=== PATIENT | male | born 1965 | race Caucasian/White ===

== ENCOUNTER 2021-03-24 22:37 | Inpatient (IN) | payer OTHER ==
[2021-03-25] MEDS ORDERED: VANCOMYCIN 1 GM in D5W (PRE-DOCKED) 1,000 MG/250 ML IVPB ONE (00:04)
[2021-03-25] MEDS ORDERED: AMPICILLIN NA/SULBACTAM NA 1.5 GM in SODIUM CHLORIDE 100 ML IVPB ONE (00:19)
[2021-03-25] MEDS ORDERED: VANCOMYCIN 1 GRAM (PRE-DOCKED) 1,000 MG/250 ML BAG IVPB ONE (00:29)
[2021-03-25 01:01] LABS: BASO % 1.6 % (0-2.0); EOS % 11.6 % (0-4.5); HEMATOCRIT 43.5 % (35.4-49); HEMOGLOBIN 14.7 GM/dL (11.7-16.9); LYMPH % 30.9 % (8-40); MCH 29.1 pg (25.7-33.7); MCHC 33.8 g/dl (32.0-35.9); MEAN CELL VOLUME 86.1 fl (80-96); MEAN PLT VOLUME 7.7 fl (7.5-11.1); MONO % 15.6 % (3.8-10.2); NEUT % 40.3 % (42.8-82.8); PLATELET COUNT 268 10^3/uL (134-434); RBC 5.06 M/mm3 (4.00-5.60); RDW 12.8 % (11.9-15.9); WHITE BLOOD COUNT 3.8 K/mm3 (4.0-10.0)
[2021-03-25 01:17] LABS: BLOOD UREA NITROGEN 19.3 mg/dL (7-18)
[2021-03-25 01:20] LABS: CREATININE 1.2 mg/dL (0.55-1.3)
[2021-03-25 01:22] LABS: BILIRUBIN,TOTAL 0.9 mg/dL (0.2-1); TOT PROT 8.4 g/dl (6.4-8.2)
[2021-03-25] MEDS ORDERED: INSULIN (NOVOLOG) ASPART 100 UNITS/ML 10ML VIAL SQ ONE (01:49)
[2021-03-25 02:44] LABS: ERYTHROCYTE SEDIMENTATION RATE 25 mm/hr (0-20)
[2021-03-25] MEDS: IBUPROFEN 400 MG TABLET (FP) PO PRN (02:50)
[2021-03-25] MEDS ORDERED: IBUPROFEN 400 MG TABLET (FP) PO ONE (02:57)
[2021-03-25 05:00] VITALS: BMI 20.8
[2021-03-25] MEDS: INSULIN SLIDING SCALE (NOVOLOG) 1 VIAL SQ SCH ×4 (06:19→21:45)
[2021-03-25] MEDS ORDERED: VANCOMYCIN 1,000 MG in DEXTROSE 5%-WATER - 250 ML IVPB SCH (09:45)
[2021-03-25] MEDS ORDERED: DEXTROSE 5%-WATER - 50 ML IVPB ONE (10:37)
[2021-03-25] MEDS ORDERED: cefTRIAXone SODIUM 1 GM VIAL ONE (10:37)
[2021-03-25] MEDS: CEFTRIAXONE 1 GM in DEXTROSE 5%-WATER - 50 ML IVPB SCH (10:57)
[2021-03-25] MEDS ORDERED: VANCOMYCIN 750 MG in DEXTROSE 5%-WATER - 250 ML IVPB SCH (12:00)
[2021-03-25] MEDS ORDERED: WATER IVPB SCH (12:00)
[2021-03-25] MEDS ORDERED: VANCOMYCIN IVPB SCH (12:00)
[2021-03-25] MEDS ORDERED: DEXTROSE 5% IVPB SCH (12:00)
[2021-03-25] MEDS: VANCOMYCIN 1 GRAM (PRE-DOCKED) 1,000 MG/250 ML BAG IVPB SCH (12:42)
[2021-03-25] MEDS ORDERED: PT OWN MED DRAWER 7, Y5N ONE (15:21)
[2021-03-25] MEDS: LEVOTHYROXINE NA 50 MCG TABLET (FP) PO SCH (15:25)
[2021-03-25] MEDS: RAMIPRIL 2.5 MG CAPSULE PO SCH (15:25)
[2021-03-25] MEDS ORDERED: INSULIN (NOVOLOG) ASPART 100 UNITS/ML 10ML VIAL ONE (21:38)
[2021-03-25] MEDS ORDERED: INSULIN (LEVEMIR) 100 UNITS/ML UNITS SQ SCH (22:00)
[2021-03-26] MEDS: VANCOMYCIN 1 GRAM (PRE-DOCKED) 1,000 MG/250 ML BAG IVPB SCH ×2 (00:07→12:33)
[2021-03-26] MEDS: IBUPROFEN 400 MG TABLET (FP) PO PRN (01:11)
[2021-03-26] MEDS: LEVOTHYROXINE NA 50 MCG TABLET (FP) PO SCH (06:02)
[2021-03-26] MEDS: INSULIN SLIDING SCALE (NOVOLOG) 1 VIAL SQ SCH ×4 (06:13→21:02)
[2021-03-26 08:44] LABS: BASO % 1.2 % (0-2.0); EOS % 11.4 % (0-4.5); HEMATOCRIT 39.6 % (35.4-49); HEMOGLOBIN 13.6 GM/dL (11.7-16.9); LYMPH % 29.1 % (8-40); MCH 29.3 pg (25.7-33.7); MCHC 34.5 g/dl (32.0-35.9); MEAN CELL VOLUME 84.9 fl (80-96); MONO % 8.7 % (3.8-10.2); NEUT % 49.6 % (42.8-82.8); PLATELET COUNT 257 10^3/uL (134-434); RBC 4.66 M/mm3 (4.00-5.60); RDW 12.7 % (11.9-15.9); WHITE BLOOD COUNT 5.6 K/mm3 (4.0-10.0)
[2021-03-26 09:06] LABS: ALBUMIN 3.2 g/dl (3.4-5.0); BLOOD UREA NITROGEN 16.6 mg/dL (7-18); CALCIUM 8.6 mg/dL (8.5-10.1)
[2021-03-26 09:11] LABS: BILIRUBIN,TOTAL 0.6 mg/dL (0.2-1); TOT PROT 6.9 g/dl (6.4-8.2)
[2021-03-26] MEDS ORDERED: cefTRIAXone SODIUM 1 GM VIAL ONE (09:25)
[2021-03-26] MEDS ORDERED: PT OWN MED DRAWER 7, Y5N ONE (09:25)
[2021-03-26] MEDS ORDERED: DEXTROSE 5%-WATER - 50 ML IVPB ONE (09:25)
[2021-03-26] MEDS: CEFTRIAXONE 1 GM in DEXTROSE 5%-WATER - 50 ML IVPB SCH (09:28)
[2021-03-26] MEDS: RAMIPRIL 2.5 MG CAPSULE PO SCH (09:28)
[2021-03-26] MEDS ORDERED: INSULIN (LEVEMIR) 100 UNITS/ML UNITS SQ SCH ×3 (12:50→22:00)
[2021-03-27] MEDS: VANCOMYCIN 1,000 MG in SODIUM CHLORIDE 1,000 MG/250 ML INFUS.BAG IVPB SCH ×2 (00:30→12:34)
[2021-03-27] MEDS: IBUPROFEN 400 MG TABLET (FP) PO PRN (00:51)
[2021-03-27 04:13] LABS: HEPATITIS C VIRUS EIA <0.1 s/co ratio (0.0-0.9)
[2021-03-27] MEDS: INSULIN SLIDING SCALE (NOVOLOG) 1 VIAL SQ SCH ×2 (06:02→11:51)
[2021-03-27] MEDS ORDERED: LEVOTHYROXINE NA 75 MCG TABLET (FP) PO SCH (07:00)
[2021-03-27] MEDS ORDERED: SODIUM CHLORIDE 50 ML IVPB ONE (09:38)
[2021-03-27] MEDS ORDERED: cefTRIAXone SODIUM 1 GM VIAL ONE (09:38)
[2021-03-27] MEDS ORDERED: PT OWN MED DRAWER 7, Y5N ONE ×2 (09:38→12:08)
[2021-03-27] MEDS: RAMIPRIL 2.5 MG CAPSULE PO SCH (09:42)
[2021-03-27] MEDS ORDERED: CEFTRIAXONE 1 GM in SODIUM CHLORIDE 50 ML IVPB SCH (10:00)
[2021-03-27 10:47] VITALS: TEMP 98.2
[2021-03-27 14:08] VITALS: BP 132/76; PULSE 55
[2021-03-27 17:06] LABS: HEP B CORE AB, TOT Negative (Negative)
== END 2021-03-27 15:52 | disposition home or self-care (01) | DRG 603 ==
LOC: JER 22:37 → JERBED 03-25 00:40 → J6S 03-25 03:27
PROVIDERS: ADMIT Internal Medicine; ATTEND Internal Medicine
DX: L03.114 Cellulitis of left upper limb (principal); R00.1 Bradycardia, unspecified; I10 Essential (primary) hypertension; E78.5 Hyperlipidemia, unspecified; E11.9 Type 2 diabetes mellitus without complications; R94.5 Abnormal results of liver function studies; Z79.4 Long term (current) use of insulin; M65.842 Other synovitis and tenosynovitis, left hand
CPT/HCPCS: 36415; 71046-TC-FY; 80053; 82550; 82962; 83036; 84443; 85025; 85651; 86140; 86618; 86704; 86706; 86707; 86708; 86709; 86803; 87040; 87340; 93005; 93010; 93225; 93226; 93306-TC; 99285-25; C9803; U0003; U0005